=== PATIENT | male | born 1970 | race Caucasian/White ===

== ENCOUNTER 2021-06-12 10:04 | Emergency (ER) | payer MEDICAID ==
[~2021-06-12] VITALS: Ht 175.3 cm; Wt 113.4 kg
[2021-06-12 10:16] VITALS: BP 176/107
--- NOTE | 2021-06-12 10:22 | NUR ---
PATIENT AMBULATED TO BED 7.
--- NOTE | 2021-06-12 10:25 | NUR ---
50 Y/O MALE BIB SELF C/O LACERATION WOUND RIGHT HAND S/P DOG BITE X 4 DAYS. PT STATES STRAY DOG BIT HIM WHILE HE WAS WALKING IN ALLEY. PT DENIES FEVER/CHILLS. PT DENIES TAKING MEDICATIONS PRIOR TO ARRIVAL TO ED. PT DENIES N/V. PT ALERT AND ORIENTED X4. BED IN LOWEST POSITION. PMH:DENIES MEDS: DENIES NKA
[2021-06-12] MEDS ORDERED: RABIES IMMUNE GLOBULIN/PF 150 UNIT/ML VIAL MC ONE ×2 (10:55→14:05)
[2021-06-12] MEDS ORDERED: RABIES VACCINE 2.5 IU VIAL IMVAC ONE (10:55)
--- NOTE | 2021-06-12 11:32 | NUR ---
PT RESTING IN BED IN NO APPARENT DISTRESS. BREATHING IS EVEN AND UNLABORED.
[2021-06-12 12:16] VITALS: BP 176/107
--- NOTE | 2021-06-12 12:17 | NUR ---
Patient discharged with v/s stable. Written and verbal after care instructions given and explained. Patient verbalized understanding. Ambulatory with steady gait. All questions addressed prior to discharge. Advised to follow up with PMD.
--- NOTE | 2021-06-12 13:25 | NUR ---
CALLED PT FOR ER/MD DR PALOMARES, VOICE MESSAGE LEFT, TO ER RETURN BACK TO ER FOR EVAL/MEDS
--- NOTE | 2021-06-12 13:50 | NUR ---
SPOKE WITH PT REGARDING RETURNING TO ER TO RECEIVE ANOTHER DOSE OF RABIES IMMUNE GLOBULIN VACCINATION. PT AGREED TO RETURN TO ER TODAY TO HAVE RE EVAL/ 2ND DOSE MEDICATION.
--- NOTE | 2021-06-12 14:31 | NUR ---
SPOKE WITH PT OVER THE PHONE REGARDING RETURNING TO ER FOR RE EVAL/MEDICATION. FEELS THAT IT IS NOT NECESSARY FOR PT TO RETURN TO ER TO RECEIVE A SECOND DOSE OF RABIES IMMUNOGLOBULIN.
== END 2021-06-12 12:16 | disposition home or self-care (01) ==
LOC: MED 10:04
DX: S61.451A Open bite of right hand, initial encounter (principal); W54.0XXA Bitten by dog, initial encounter; Y93.89 Activity, other specified; Y92.89 Other specified places as the place of occurrence of the external cause; Y99.8 Other external cause status
CPT/HCPCS: 90471; 90675; 99283